=== PATIENT | female | born 1960 | race Two or more races ===

== ENCOUNTER 2024-07-14 22:10 | Inpatient (IN) | payer MEDICAID, OTHER ==
[~2024-07-14] VITALS: Ht 167.6 cm; Wt 58.8 kg
[2024-07-14 22:37] LABS: Basophils # (auto) 0 10 ^3/uL (0-0.2); Basophils % (auto) 0.4 % (0.0-2.0); Eosinophils # (auto) 0.1 10 ^3/uL (0-0.8); Eosinophils % (auto) 0.7 % (0.0-7.0); Hematocrit 48.3 % (36.0-46.0); Lymphocytes # (auto) 2.4 10 ^3/uL (0.4-5.4); Lymphocytes % (auto) 26.9 % (10.0-50.0); Mean Corpuscular Hemoglobin 31.3 pg (28.0-32.0); Mean Corpuscular Hgb Conc. 35.3 g/dL (32.0-36.0); Mean Corpuscular Volume 88.9 fL (80.0-100.0); Monocytes # (auto) 0.6 10 ^3/uL (0-1.3); Monocytes % (auto) 6.5 % (0.0-12.0); Neutrophils # (auto) 5.9 10 ^3/uL (1.6-8.6); Neutrophils % (auto) 65.5 % (37.0-80.0); Platelet Count (auto) 202 10^3/uL (140-450); Red Blood Cells 5.43 10^6/uL (4.0-5.20); Red Cell Distribution Width 12.8 % (11.8-14.3); White Blood Cell 8.9 10^3/uL (4.4-10.8)
[2024-07-14 22:50] VITALS: PULSE 61; RESP 16; O2SAT 100
[2024-07-14 22:53] LABS: Alanine Aminotransferase 59 U/L (7-40); Alkaline Phosphatase 157 U/L (46-116); Anion Gap 10 (5-15); Aspartate Aminotransferase 43 U/L (13-40); BUN/Creatinine Ratio 14.5 (10.0-20.0); Bilirubin, Total 0.5 mg/dL (0.2-1.0); Blood Urea Nitrogen 10 mg/dL (9-23); Calcium 9.3 mg/dL (8.7-10.4); Carbon Dioxide 23 mmol/L (20-30); Chloride 102 mmol/L (98-107); Glucose 171 mg/dL (74-106); Potassium 3.2 mmol/L (3.5-5.1); Sodium 135 mmol/L (136-145)
[2024-07-14 22:54] LABS: Total Protein 8.1 g/dL (5.7-8.2)
[2024-07-14] MEDS: hydrALAZINE HCL 20 MG/ML VL IV ONE ×2 (23:13→23:52)
[2024-07-14] MEDS: ONDANSETRON HCL 4 MG/2 ML VIAL IV ONE (23:14)
[2024-07-14] MEDS: FAMOTIDINE (10MG/ML) 2ML VL IV ONE (23:16)
[2024-07-14] MEDS: MORPHINE SULFATE 4 MG/ML SYR/VIAL IV ONE (23:16)
[2024-07-15 04:03] LABS: Urine Bacteria None Seen /hpf (None Seen)
[2024-07-15 04:26] LABS: Urine Blood Negative /uL (Negative); Urine Budding Yeast OCCASIONAL /hpf (None Seen); Urine Clarity Clear (Clear); Urine Color Light-Yellow (Yellow); Urine Mucus FEW (None Seen); Urine Protein, UAD 1+ (Negative); Urine Specific Gravity 1.012 (1.001-1.035); Urine Urobilinogen Normal (Negative); Urine WBC <1 /hpf (0 - 5)
[2024-07-15] MEDS: POTASSIUM CHL 20 Meq TABLET PO ONE (05:06)
[2024-07-15] MEDS ORDERED: ACETAMINOPHEN 325 MG TAB PO PRN (11:15)
[2024-07-15] MEDS ORDERED: DOCUSATE SOD 100 MG CAP PO PRN (11:15)
[2024-07-15] MEDS ORDERED: HYDROmorphone HCL 2 MG/ML VL/or syr IV PRN (11:15)
[2024-07-15] MEDS ORDERED: ONDANSETRON HCL 4 MG/2 ML VIAL IV PRN (11:15)
[2024-07-15] MEDS ORDERED: hydrALAZINE HCL 20 MG/ML VL IV PRN (11:30)
[2024-07-15 12:11] LABS: Anion Gap 9 (5-15); Carbon Dioxide 23 mmol/L (20-30); Chloride 105 mmol/L (98-107); Sodium 137 mmol/L (136-145)
[2024-07-15 12:12] LABS: Calcium 9.4 mg/dL (8.7-10.4)
[2024-07-15 12:17] LABS: BUN/Creatinine Ratio 13.1 (10.0-20.0); Blood Urea Nitrogen 8 mg/dL (9-23); Glucose 114 mg/dL (74-106); Magnesium 2.2 mg/dL (1.6-2.6)
[2024-07-15 12:40] VITALS: BP 139/74; PULSE 64; RESP 16; TEMP 99.6; O2SAT 92
[2024-07-15 13:03] VITALS: BP 139/74; PULSE 64; RESP 16; TEMP 99.6; O2SAT 92
[2024-07-15] MEDS: SODIUM CHLOR 0.9% PF (SALINE LOCK) 10ML VIAL/SYR IV SCH (15:26)
[2024-07-15 16:53] VITALS: BP 114/74; PULSE 76; RESP 16; TEMP 98.2; O2SAT 95
[2024-07-15] MEDS: NIFEdipine ER 30 MG TAB PO ONE (17:53)
[2024-07-15 20:00] VITALS: PULSE 95
[2024-07-15 22:00] VITALS: BP_SYST 134; BP_DIAS 84; BP_DIAS 87; PULSE 81; RESP 17; TEMP 100.6; O2SAT 94
[2024-07-15] MEDS: HYDROcodone-ACET 5/325MG TAB PO PRN (23:09)
[2024-07-16 01:00] VITALS: BP 100/54; PULSE 70; RESP 16; TEMP 98.4; O2SAT 97
[2024-07-16 05:00] VITALS: BP 104/55; PULSE 67; RESP 17; TEMP 98; O2SAT 95
[2024-07-16 06:21] LABS: Basophils # (auto) 0 10 ^3/uL (0-0.2); Basophils % (auto) 0.5 % (0.0-2.0); Eosinophils # (auto) 0.1 10 ^3/uL (0-0.8); Eosinophils % (auto) 1.2 % (0.0-7.0); Hematocrit 49.1 % (36.0-46.0); Lymphocytes # (auto) 2.2 10 ^3/uL (0.4-5.4); Lymphocytes % (auto) 29.5 % (10.0-50.0); Mean Corpuscular Hemoglobin 31.2 pg (28.0-32.0); Mean Corpuscular Hgb Conc. 34.5 g/dL (32.0-36.0); Mean Corpuscular Volume 90.4 fL (80.0-100.0); Monocytes # (auto) 0.7 10 ^3/uL (0-1.3); Monocytes % (auto) 9.8 % (0.0-12.0); Neutrophils # (auto) 4.4 10 ^3/uL (1.6-8.6); Platelet Count (auto) 209 10^3/uL (140-450); Red Blood Cells 5.43 10^6/uL (4.0-5.20); Red Cell Distribution Width 13.2 % (11.8-14.3); White Blood Cell 7.5 10^3/uL (4.4-10.8)
[2024-07-16 06:34] LABS: Alanine Aminotransferase 52 U/L (7-40); Albumin 4.6 g/dL (3.2-4.8); Alkaline Phosphatase 116 U/L (46-116); Anion Gap 8 (5-15); BUN/Creatinine Ratio 18.4 (10.0-20.0); Blood Urea Nitrogen 14 mg/dL (9-23); Calcium 9.5 mg/dL (8.7-10.4); Carbon Dioxide 25 mmol/L (20-30); Chloride 103 mmol/L (98-107); Glucose 125 mg/dL (74-106); LDL Cholesterol 152 mg/dL (< 100); Magnesium 2.1 mg/dL (1.6-2.6); Potassium 3.9 mmol/L (3.5-5.1); Sodium 136 mmol/L (136-145); Triglycerides 141 mg/dL (< 150)
[2024-07-16 06:35] LABS: Aspartate Aminotransferase 32 U/L (13-40); Bilirubin, Total 0.9 mg/dL (0.2-1.0); Cholesterol 219 mg/dL (< 200); HDL Cholesterol 51 mg/dL (40-59); Total Protein 7.5 g/dL (5.7-8.2)
[2024-07-16 08:00] VITALS: PULSE 69; RESP 16
[2024-07-16 08:39] VITALS: BP 96/62; PULSE 59; RESP 14; TEMP 99; O2SAT 95
[2024-07-16] MEDS: NIFEdipine ER 30 MG TAB PO SCH (10:00)
[2024-07-16 12:55] VITALS: BP 90/55; PULSE 59; RESP 18; TEMP 99.5; O2SAT 96
[2024-07-16 17:00] VITALS: BP 92/49; PULSE 70; RESP 16; TEMP 99; O2SAT 98
== END 2024-07-16 18:20 | disposition home or self-care (01) | DRG 194 ==
LOC: ER 22:10 → OVERFLOW 07-15 11:18 → WEST WING 07-15 12:40 → TELE-WESTW 07-15 23:07
PROVIDERS: ADMIT Internal Medicine; ATTEND Internal Medicine
DX: I50.31 Acute diastolic (congestive) heart failure (principal); K76.0 Fatty (change of) liver, not elsewhere classified; E03.9 Hypothyroidism, unspecified; I16.9 Hypertensive crisis, unspecified; E66.9 Obesity, unspecified; E87.6 Hypokalemia; G44.1 Vascular headache, not elsewhere classified; Z85.43 Personal history of malignant neoplasm of ovary; Z79.899 Other long term (current) drug therapy; Z68.20 Body mass index [BMI] 20.0-20.9, adult
CPT/HCPCS: 36415; 70450; 71045; 76705; 80048; 80053; 80061; 81001; 83036; 83690; 83735; 84443; 84484; 85025; 93005; 93306; G0378; J2405; J3490

== ENCOUNTER 2025-03-07 18:17 | Inpatient (IN) | payer MEDICAID ==
[~2025-03-07] VITALS: Ht 134.6 cm; Wt 67.5 kg
[2025-03-07] MEDS: SODIUM CHLORIDE 0.9% 1,000 ML IV ONE (00:42)
[2025-03-07] MEDS: ACETAMINOPHEN 325 MG TAB PO ONE (10:37)
[2025-03-07] MEDS: IBUPROFEN 600 MG TAB PO ONE (18:44)
[2025-03-07] MEDS ORDERED: CEFEPIME 2GM/50ML NS 50 ML IV ONE (19:00)
--- NOTE | 2025-03-07 19:24 | ED.PDOC ---
History of Present Illness HPI Comments 64 year old female presents to the ED with a chief complaint of fever onset today (03/07/25). Patient states she began experiencing headache around 15:00, body aches, dizziness, chills. Patient was seen at urgent care about 1 week ago, prescribed medication, symptoms improved and worsen today. Upon ED arrival, temperature was 103.7 F, Tylenol 1 g and Ibuprofen 600 mg was given. Denies any PMHx as well as abdominal pain, nausea, vomiting, diarrhea, cough, congestion. No other symptoms or modifying factors present at this time. Chief Complaint: Fever Time Seen by MD: 18:50 Reviewed Notes: Medications, Allergies Information Source: Patient Mode of Arrival: Ambulatory Timing: Hours Duration: Since onset Prehospital treatment: None Severity: Moderate Fever: Temperature max (103.7F) Context: Recent: None Symptoms: Fever Modifying Factors: Nothing Associated Signs and Symptoms: Weakness, Headache Past Medical History PAST MEDICAL HISTORY: Denies Surgical History: Denies all surgeries PROGRAM DIRECTOR/MUSIC DIRECTOR History: Ovarian Cancer Family History Family History: Reviewed,noncontributory to illness Social History Smoker: Non-Smoker Alcohol: Denies ETOH Use Drugs: Denies Drug Use Lives In: Home Constitutional: Fever EENTM: No Symptoms Reported Respiratory: No Symptoms Reported Cardiovascular: No Symptoms Reported Gastrointestinal: No Symptoms Reported Genitourinary: No Symptoms Reported Neurological: Dizziness, Headache Musculoskeletal: No Symptoms Reported Integumentary: No Symptoms Reported Allergic/Immunocompromised: others Hematologic/Lymphatic: No Symptoms Reported Endocrine: No Symptoms Reported Psychiatric: No symptoms Reported All Other Systems: Reviewed and Negative Physical Exam General Appearance: Moderate Distress, Normal, Other (tearful, febrile) HEENT: Normal ENT Inspection, Pharynx Normal, TMs Normal Neck: Full Range of Motion, Non-Tender, Normal, Normal Inspection Respiratory: Chest Non-Tender, Lungs Clear, No Accessory Muscle Use, No Respiratory Distress, Normal Breath Sounds Cardiovascular: No Edema, No JVD, No Murmur, No Gallop, Tachycardia Breast Exam: Deferred Gastrointestinal: No Organomegaly, Non Tender, No Pulsatile Mass, Normal Bowel Sounds, Soft Genitalia: Deferred Pelvic: Deferred Rectal: Deferred Extremities: No calf tenderness, Normal capillary refill, Normal inspection, Normal range of motion, Non-tender, No pedal edema Musculoskeletal : Apperance: Normal Neurologic: Alert, mophead trimmer and wrapper II-XII nml as Tested, No Motor Deficits, Normal Affect, Normal Mood, No Sensory Deficits Cerebellar Function: Normal Reflexes: Normal Skin: Dry, Normal Color, Warm Lymphatic: No Adenopathy Was a procedure done? Was a procedure done?: No Fever Differential Dx Differential Diagnosis: Dehydration, Pneumonia, Pneumonitis, Pyelonephritis, Sepsis, UTI, Viral Syndrome X-Ray, Labs, Meds, VS Vital Signs Date Time Temp Pulse Resp B/P (MAP) Pulse Ox O2 Delivery O2 Flow Rate FiO2 03/07/25 18:45 103.7 110 18 137/101 (113) 97 103.7 03/07/25 18:44 103.7 03/07/25 10:37 103.7 Lab Test 03/07/25 21:12 03/07/25 20:11 03/07/25 19:11 Range/Units Lactic Acid Level 2.6 *H 2.6 *H 0.4-2.0 mmol/L Troponin I High Sensitivity 8 6 </=34 ng/L White Blood Count 12.8 H 4.4-10.8 10^3/uL Red Blood Count 5.46 H 4.0-5.20 10^6/uL Hemoglobin 16.9 H 12.2-16.2 g/dL Hematocrit 49.5 H 36.0-46.0 % Mean Corpuscular Volume 90.6 80.0-100.0 fL Mean Corpuscular Hemoglobin 30.9 28.0-32.0 pg Mean Corpuscular Hemoglobin Concent 34.1 32.0-36.0 g/dL Red Cell Distribution Width 13.1 11.8-14.3 % Platelet Count 179 140-450 10^3/uL Mean Platelet Volume 8.0 6.9-10.8 fL Neutrophils (%) (Auto) 92.3 H 37.0-80.0 % Lymphocytes (%) (Auto) 4.8 L 10.0-50.0 % Monocytes (%) (Auto) 2.1 0.0-12.0 % Eosinophils (%) (Auto) 0.4 0.0-7.0 % Basophils (%) (Auto) 0.4 0.0-2.0 % Neutrophils # (Auto) 11.8 H 1.6-8.6 10 ^3/uL Lymphocytes # (Auto) 0.6 0.4-5.4 10 ^3/uL Monocytes # (Auto) 0.3 0-1.3 10 ^3/uL Eosinophils # (Auto) 0 0-0.8 10 ^3/uL Basophils # (Auto) 0.1 0-0.2 10 ^3/uL Nucleated Red Blood Cells 0.3 % Platelet Estimate Adequate Red Blood Cell Morphology Normal Sodium Level 136 136-145 mmol/L Potassium Level 3.6 3.5-5.1 mmol/L Chloride Level 103 98-107 mmol/L Carbon Dioxide Level 23 20-31 mmol/L Anion Gap 10 5-15 Blood Urea Nitrogen 13 9-23 mg/dL Creatinine 0.69 0.550-1.02 mg/dL Glomerular Filtration Rate Calc 97 >90 mL/min BUN/Creatinine Ratio 18.8 10.0-20.0 Serum Glucose 135 H 74-106 mg/dL Calcium Level 9.5 8.7-10.4 mg/dL Total Bilirubin 0.6 0.2-1.0 mg/dL Aspartate Amino Transferase (AST) 41 H 13-40 U/L Alanine Aminotransferase (ALT) 60 H 7-40 U/L Alkaline Phosphatase 177 H 46-116 U/L Total Protein 7.5 5.7-8.2 g/dL Albumin 4.7 3.2-4.8 g/dL Current Medications Medications (Trade) Dose Ordered Sig/Kel Route Start Time Stop Time Status Last Admin Acetaminophen (Tylenol Tablet) 1,000 mg ONCE ONCE PO 03/07/25 18:45 03/07/25 18:46 DC 03/07/25 10:37 Ibuprofen (Motrin Tablet) 600 mg ONCE ONCE PO 03/07/25 18:45 03/07/25 18:46 DC 03/07/25 18:44 [place] [address] Ph: [phone] DIAGNOSTIC IMAGING Diagnostic Imaging Report : [id number] Signed PATIENT: KATINA MENDEZACCT: [id number] UNIT: [id number] : 1960 LOC: ER ROOM / BED: / AGE / SEX: 64 / F ADM STATUS: REG ER SERVICE [id number] ORDERING PHYSICIAN: KIRSTEN COVARRUBIAS MD PROCEDURE(s): CXRP - CHEST PORTABLE REASON: syncope ORDER NUMBER(s): [id number], ACCESSION NUMBER(s): [id number] CHEST RADIOGRAPH Indication: syncope Technique: Single frontal view of the chest was obtained Comparison: XY CHEST PORTABLE on DOS: 07/14/24 FINDINGS: Lines and Tubes: None Lungs: No focal consolidation. Pleura: No effusion. No pneumothorax. Cardiomediastinal contours: Unremarkable Bones: No acute osseous abnormality. IMPRESSION: No acute cardiopulmonary disease. ATED BY: LIZZIE GOTTLIEB DO DICTATED DATE/TIME: 03/07/252053 SIGNED BY: LIZZIE GOTTLIEB DO SIGNED DATE/TIME: 03/07/252053 CC: [place] [address] Ph: [phone] DIAGNOSTIC IMAGING Diagnostic Imaging Report : [id number] Signed PATIENT: KATINA MENDEZACCT: [id number] UNIT: [id number] : 1960 LOC: ER ROOM / BED: / AGE / SEX: 64 / F ADM STATUS: REG ER SERVICE [id number] ORDERING PHYSICIAN: KIRSTEN COVARRUBIAS MD PROCEDURE(s): HWOCT - HEAD WITHOUT CONTRAST REASON: syncope ORDER NUMBER(s): [id number], ACCESSION NUMBER(s): [id number] CLINICAL HISTORY: syncope TECHNIQUE: Helical imaging carried out from skull base to vertex without intravenous contrast. This exam was performed according to our departmental dose optimization program. Up-to-date CT equipment and radiation dose reduction techniques are utilized as appropriate. CTDIVol: 52.36 + 0.07 mGy DLP: 927.27 mGy-cm WID: COMPARISON: CT HEAD WITHOUT CONTRAST on DOS: 07/14/24 FINDINGS: Mild patchy low-attenuation in the cerebral white matter consistent with nonspecific white matter disease. The ventricles and subarachnoid spaces are normal in size and configuration. There is no midline shift or mass effect. The garza white matter interfaces are maintained. The basal cisterns are patent. There is no evidence of acute intracranial hemorrhage or extra-axial fluid collection. The mastoid air cells and visualized paranasal sinuses are well-aerated aside from frothy secretions i n the right sphenoid sinus and a trace fluid level in the left sphenoid sinus. IMPRESSION: 1. No acute intracranial abnormality. 2. Mild chronic microvascular ischemic change. ATED BY: MIYA BRADLEY MD DICTATED DATE/TIME: 03/07/252044 SIGNED BY: MIYA BRADLEY MD SIGNED DATE/TIME: 03/07/252044 CC: Time of 1ST Reevaluation: 19:20 Reevaluation 1ST: Unchanged Patient Education/Counseling: Diagnosis, Treatment, Prognosis Family Education/Counseling: No Family Present Additional Information The following tests were ordered, and results were reviewed by me: CBC, CMP, LA W/ REFLEX, BLOOD CULTURE, TROP -x3, UA, XY CHEST, CT HEAD WO CONTRAST I reviewed and agreed with the following test results read by other providers: XY CHEST, CT HEAD WO CONTRAST I discussed treatment and results with medical personnel and: patient Comprehensive systems review obtained and negative except for what is stated in the HPI. Departure 1 Departure Time of Disposition: 22:23 (Patient presented with syncope and fever today and should be admitted. Data: 1. I ordered and reviewed the result of at least 3 labs including a CBC, BMP, and troponin. 2. I independently interpreted the following tests: EKG which shows a sinus tachycardia and a chest x-ray which shows benign chest and a CT head which shows benign brain.Risk:This patient has a high risk of morbidity due to further diagnostic testing or treatment and may suffer from an acute cardiac, neurologic, or infectious disorder. Rationale: Patient should be admitted to the hospital for further management.) Impression: Primary Impression: Syncope and collapse Additional Impressions: Viral syndrome Fever Qualified Codes: R50.9 - Fever, unspecified Disposition: ADMITTED INPATIENT Admit to: Med Surg Condition: Serious e-Prescriptions No Active Prescriptions or Reported Meds Critical Care Note Critical Care Time?: Yes Critical care comment: Syncope Authorized and Performed by: Kirsten Covarrubias MD Total critical care time: Approximately 38 minutes Due to a high probability of clinically significant, life threatening deterioration, the patient required my highest level of preparedness to intervene emergently and I personally spent this critical care time directly and personally managing the patient. This critical care time included obtaining a history; examining the patient; pulse oximetry; ordering and review of studies; arranging urgent treatment with development of a management plan; evaluation of patient's response to treatment; frequent reassessment; and, discussions with other providers. This critical care time was performed to assess and manage the high probability of imminent, life-threatening deterioration that could result in multi-organ failure. It was exclusive of separately billable procedures and treating other patients and teaching time. Please see my other sections and the rest of the note for further information on patient assessment and treatment. Stability Stability form required: No I personally scribed for KIRSTEN COVARRUBIAS MD ([email or web address]) on 03/07/25 at 19:24. Electronically submitted by Kat Britton ([email or web address]). I personally scribed for KIRSTEN COVARRUBIAS MD ([email or web address]) on 03/07/25 at 20:37. Electronically submitted by Kat Britton ([email or web address]). I personally scribed for KIRSTEN COVARRUBIAS MD ([email or web address]) on 03/07/25 at 21:27. Electronically submitted by Kat Britton ([email or web address]). KIRSTEN COVARRUBIAS MD Mar 07, 2025 19:24
[2025-03-07 19:50] LABS: Basophils # (auto) 0.1 10 ^3/uL (0-0.2); Basophils % (auto) 0.4 % (0.0-2.0); Eosinophils # (auto) 0 10 ^3/uL (0-0.8); Eosinophils % (auto) 0.4 % (0.0-7.0); Hematocrit 49.5 % (36.0-46.0); Hemoglobin 16.9 g/dL (12.2-16.2); Lymphocytes # (auto) 0.6 10 ^3/uL (0.4-5.4); Lymphocytes % (auto) 4.8 % (10.0-50.0); Mean Corpuscular Hemoglobin 30.9 pg (28.0-32.0); Mean Corpuscular Hgb Conc. 34.1 g/dL (32.0-36.0); Mean Corpuscular Volume 90.6 fL (80.0-100.0); Monocytes # (auto) 0.3 10 ^3/uL (0-1.3); Monocytes % (auto) 2.1 % (0.0-12.0); Neutrophils # (auto) 11.8 10 ^3/uL (1.6-8.6); Neutrophils % (auto) 92.3 % (37.0-80.0); Nucleated Red Blood Cells % 0.3 %; Platelet Count (auto) 179 10^3/uL (140-450); Red Blood Cells 5.46 10^6/uL (4.0-5.20); Red Cell Distribution Width 13.1 % (11.8-14.3); White Blood Cell 12.8 10^3/uL (4.4-10.8)
[2025-03-07 20:01] LABS: Albumin 4.7 g/dL (3.2-4.8); Anion Gap 10 (5-15); BUN/Creatinine Ratio 18.8 (10.0-20.0); Bilirubin, Total 0.6 mg/dL (0.2-1.0); Blood Urea Nitrogen 13 mg/dL (9-23); Calcium 9.5 mg/dL (8.7-10.4); Carbon Dioxide 23 mmol/L (20-31); Chloride 103 mmol/L (98-107); Potassium 3.6 mmol/L (3.5-5.1); Total Protein 7.5 g/dL (5.7-8.2)
[2025-03-07 20:07] LABS: Alanine Aminotransferase 60 U/L (7-40); Alkaline Phosphatase 177 U/L (46-116); Aspartate Aminotransferase 41 U/L (13-40); Glucose 135 mg/dL (74-106); Sodium 136 mmol/L (136-145)
[2025-03-07 20:12] LABS: Lactic Acid w/Reflex 2.6 mmol/L (0.4-2.0)
--- NOTE | 2025-03-07 20:47 | DVH ---
CLINICAL HISTORY: syncope TECHNIQUE: Helical imaging carried out from skull base to vertex without intravenous contrast. This e xam was performed according to our departmental dose optimization program. Up-to-date CT equipment an d radiation dose reduction techniques are utilized as appropriate. CTDIVol: 52.36 + 0.07 mGy DLP: 927.27 mGy-cm WID: COMPARISON: CT HEAD WITHOUT CONTRAST on DOS: 07/14/24 FINDINGS: Mild patchy low-attenuation in the cerebral white matter consistent with nonspecific white matter dis ease. The ventricles and subarachnoid spaces are normal in size and configuration. There is no midline fredrick ft or mass effect. The garza white matter interfaces are maintained. The basal cisterns are patent. Th ere is no evidence of acute intracranial hemorrhage or extra-axial fluid collection. The mastoid air cells and visualized paranasal sinuses are well-aerated aside from frothy secretions in the right sph enoid sinus and a trace fluid level in the left sphenoid sinus. IMPRESSION: 1. No acute intracranial abnormality. 2. Mild chronic microvascular ischemic change.
--- NOTE | 2025-03-07 20:56 | DVH ---
CHEST RADIOGRAPH Indication: syncope Technique: Single frontal view of the chest was obtained Comparison: XY CHEST PORTABLE on DOS: 07/14/24 FINDINGS: Lines and Tubes: None Lungs: No focal consolidation. Pleura: No effusion. No pneumothorax. Cardiomediastinal contours: Unremarkable Bones: No acute osseous abnormality. IMPRESSION: No acute cardiopulmonary disease.
[2025-03-07 22:05] LABS: Platelet Estimate Adequate; RBC Morphology Normal
[2025-03-07 23:55] VITALS: PULSE 65; RESP 13; O2SAT 97
--- NOTE | 2025-03-07 23:57 | DVHHPRES ---
History of Present Illness Resident Creating Document: MOISÉS CAMPA RESIDENT History of Present Illness Ms Wen is a 64-year-old female with past medical history of hypertension, left eye retinal detachment September 2024 status post surgery at [place] who presented to the ER with a chief complaint of left-sided headache, conjunctival redness, dizziness and fever for the past 7 days. Patient has been reporting dizziness for the past 2 weeks for which she went [facility] where she was probably given meclizine and sent home. Patient's symptom did not improve and she continues to be dizzy, started to develop left-sided periorbital headache radiating to the left temporal region associated with high-grade fever 103 F starting 03/07 along with chills. Headache is associated photophobia patient is experiencing headache for the past 2 months. She denies any nausea vomiting shortness of breaths, chest pain, cough, palpitations, abdominal or urinary symptoms. Patient was completed her Medrol doxy pack on 03/03, she has been taking p.o. cefdinir Patient denies ophthalmoplegia, blurry vision, proptosis, nausea or vomiting. On arrival to the ER, patient was febrile at 1:03 a.m. 0.7 F, tachycardic at 110 beats per minute, on room air, WBC 12.8 with 92 neutrophils. Lactic acid elevated at 2.6. Transaminitis. Head CT was completed which was negative. Past medical history: Left sided retinal detachment status post surgery at [place] October 01 Home medications: Completed Medrol pack 03/03, cefdinir b.i.d., fluticasone nasal spray meclizine Social history: Lives with , denies smoking/drinking/illicit drug use PCP: Does not remember Surgeon Dr. Arciniega at [place] Patient seen and examined in the ER. Reported dizziness. Smoke: No ALCOHOL: none Drugs: None Lives: with Family Review of Systems Constitutional: Yes: Fever, Chills Eyes: Conjunctivae inflammation, Redness Allergies: Coded Allergies: NO KNOWN ALLERGIES (Unverified , 07/14/24) Exam Vital Signs Vital Signs Date Time Temp Pulse Resp B/P (MAP) Pulse Ox O2 Delivery O2 Flow Rate FiO2 03/07/25 18:45 103.7 110 18 137/101 (113) 97 103.7 Exam Female patient sitting comfortably in the wheelchair in ER, no acute distress Bilateral conjunctivae are inflamed. Normal pupillary reflex Patient does not have neck rigidity or Kernig's sign General: Well-built, afebrile, mucosae are moist Cardiovascular: Regular S1 and S2. No murmurs, gallops or rubs. No JVD elevation. No pedal edema Respiratory: Normal B/L air entry on room air. Clear lung sounds on auscultation Abdomen: Soft, nontender, nondistended, normoactive bowel sounds, no rebound tenderness, no organomegaly, no masses Genitourinary: Deferred MSK/skin: Mobilizes 4 limbs. Skin is dry and warm Neurological: No motor, no sensitive deficits, normal speech. Pupils are isocoric and reactive. Psych/Mental Status: A/Ox3 Labs/Xrays Labs Test 03/07/25 21:12 03/07/25 20:11 03/07/25 19:11 Range/Units Lactic Acid Level 2.6 *H 0.4-2.0 mmol/L Troponin I High Sensitivity 8 </=34 ng/L White Blood Count 12.8 H 4.4-10.8 10^3/uL Red Blood Count 5.46 H 4.0-5.20 10^6/uL Hemoglobin 16.9 H 12.2-16.2 g/dL Hematocrit 49.5 H 36.0-46.0 % Mean Corpuscular Volume 90.6 80.0-100.0 fL Mean Corpuscular Hemoglobin 30.9 28.0-32.0 pg Mean Corpuscular Hemoglobin Concent 34.1 32.0-36.0 g/dL Red Cell Distribution Width 13.1 11.8-14.3 % Platelet Count 179 140-450 10^3/uL Mean Platelet Volume 8.0 6.9-10.8 fL Neutrophils (%) (Auto) 92.3 H 37.0-80.0 % Lymphocytes (%) (Auto) 4.8 L 10.0-50.0 % Monocytes (%) (Auto) 2.1 0.0-12.0 % Eosinophils (%) (Auto) 0.4 0.0-7.0 % Basophils (%) (Auto) 0.4 0.0-2.0 % Neutrophils # (Auto) 11.8 H 1.6-8.6 10 ^3/uL Lymphocytes # (Auto) 0.6 0.4-5.4 10 ^3/uL Monocytes # (Auto) 0.3 0-1.3 10 ^3/uL Eosinophils # (Auto) 0 0-0.8 10 ^3/uL Basophils # (Auto) 0.1 0-0.2 10 ^3/uL Nucleated Red Blood Cells 0.3 % Platelet Estimate Adequate Red Blood Cell Morphology Normal Sodium Level 136 136-145 mmol/L Potassium Level 3.6 3.5-5.1 mmol/L Chloride Level 103 98-107 mmol/L Carbon Dioxide Level 23 20-31 mmol/L Anion Gap 10 5-15 Blood Urea Nitrogen 13 9-23 mg/dL Creatinine 0.69 0.550-1.02 mg/dL Glomerular Filtration Rate Calc 97 >90 mL/min BUN/Creatinine Ratio 18.8 10.0-20.0 Serum Glucose 135 H 74-106 mg/dL Calcium Level 9.5 8.7-10.4 mg/dL Total Bilirubin 0.6 0.2-1.0 mg/dL Aspartate Amino Transferase (AST) 41 H 13-40 U/L Alanine Aminotransferase (ALT) 60 H 7-40 U/L Alkaline Phosphatase 177 H 46-116 U/L Total Protein 7.5 5.7-8.2 g/dL Albumin 4.7 3.2-4.8 g/dL Assessment/Plan Assessment/Plan ? Septic cerebral venous thrombosis ? Cavernous sinus thrombosis ? Endopht halmitis Left-sided retinal detachment status post surgery at [place] September 2024 Dizziness, rule out stroke/mass ? Polycythemia Lactic acidosis Transaminitis Obesity Hypertension Plan: Lovenox 1 milligram/kg b.i.d. IV fluid, IV vancomycin, IV ceftriaxone and IV metronidazole CT head unremarkable Follow up with MRI with MR venography Follow up with ESR/CRP/Anca/SELINA/peripheral smear/D-dimer Consider EPO levels Follow up with liver ultrasound Elevated D-dimer, follow up with lower extremity Doppler Diet NPO Lovenox 40 mg sc daily Plan discussed with patient and in ER in which all questions have been answered Goals of care discussed for more than 30 minutes, full code status Case discussed with Dr. Torres Plan discussed with: Patient, Other () Date of Service: Mar 07, 2025 Billing Provider: CHILO TORRES MD Common Visit Codes: 92242-MSTTXCS INP/OBS CARE (HIGH) KATHERYNMOISÉS RESIDENT Mar 07, 2025 23:56
[2025-03-08] VITALS (10 sets, daily range): BP systolic 99–159; BP diastolic 54–92; PULSE 53–84; RESP 16–18; TEMP 97.6–102.8; O2SAT 95–98
[2025-03-08] MEDS: SODIUM CHLORIDE 0.9% 1,000 ML IV SCH
[2025-03-08] MEDS ORDERED: MORPHINE SULFATE INJ 2 MG/ml SYRG IV PRN
[2025-03-08] MEDS ORDERED: HYDROcodone-ACET 5/325MG TAB PO PRN
[2025-03-08] MEDS ORDERED: VANCOMYCIN PER PHARMACY 0 MG IV SCH
[2025-03-08 00:24] LABS: Urine Bacteria None Seen /hpf (None Seen)
[2025-03-08] MEDS: VANCOMYCIN 1.5GM/300ML 300 ML IV ONE (00:30)
[2025-03-08] MEDS: ONDANSETRON HCL 4 MG/2 ML VIAL IV ONE (00:50)
[2025-03-08] MEDS: SODIUM CHLORIDE 0.9% 1,000 ML IV ONE ×2 (00:50)
[2025-03-08] MEDS: ACETAMINOPHEN 325 MG TAB PO SCH (00:51)
[2025-03-08] MEDS: METOCLOPRAMIDE HCL 5MG/ml INJ 2ml VIAL IV ONE (00:51)
[2025-03-08] MEDS: VANCOMYCIN 1GM/200ML PM 200 ML IV ONE (00:52)
[2025-03-08] MEDS: cefTRIAXone 1GM/50ML D5W 50 ML IV ONE (00:55)
[2025-03-08] MEDS: metroNIDAZOLE 500MG/100ML 100 ML IV ONE (00:56)
[2025-03-08 01:07] LABS: Urine Blood Negative /uL (Negative); Urine Clarity Clear (Clear); Urine Color Light-Yellow (Yellow); Urine Mucus FEW (None Seen); Urine Protein, UAD Negative (Negative); Urine Specific Gravity 1.018 (1.001-1.035); Urine Squamous Epithelial Cell None Seen /hpf (<5); Urine Urobilinogen Normal (Negative); Urine WBC 2 /HPF (0-5); Urine pH 5.5 (5.0-9.0)
[2025-03-08 02:33] LABS: Erythrocyte Sedimentation Rate 4 mm/hr (0-20)
[2025-03-08] MEDS: VANCOMYCIN 1GM/250ML KIT 125 ML IV ONE (03:16)
[2025-03-08 03:19] LABS: Amphetamine Screen, Urine Neg (NEGATIVE); Barbiturate Scree,Urine Neg (NEGATIVE); Benzodiazephine Screen, Urine Neg (NEGATIVE); Cannabinoid Screen, Urine Neg (NEGATIVE); Cocaine Screen, Urine Neg (NEGATIVE); Opiate Scree,Urine Neg (NEGATIVE); Phencyclidine Screen, Urine Neg (NEGATIVE)
[2025-03-08] MEDS: ENOXAPARIN SOD 100 MG/1 ML SYRINGE SC ONE (03:21)
[2025-03-08] MEDS: metroNIDAZOLE 500MG/100ML 100 ML IV SCH (05:56)
[2025-03-08 08:06] LABS: Basophils # (auto) 0 10 ^3/uL (0-0.2); Basophils % (auto) 0.3 % (0.0-2.0); Eosinophils # (auto) 0.1 10 ^3/uL (0-0.8); Eosinophils % (auto) 0.6 % (0.0-7.0); Hematocrit 42.1 % (36.0-46.0); Hemoglobin 14.6 g/dL (12.2-16.2); Lymphocytes # (auto) 0.9 10 ^3/uL (0.4-5.4); Lymphocytes % (auto) 8.1 % (10.0-50.0); Mean Corpuscular Hemoglobin 31.2 pg (28.0-32.0); Mean Corpuscular Hgb Conc. 34.6 g/dL (32.0-36.0); Mean Corpuscular Volume 90.1 fL (80.0-100.0); Monocytes # (auto) 0.5 10 ^3/uL (0-1.3); Monocytes % (auto) 5.1 % (0.0-12.0); Neutrophils # (auto) 9.3 10 ^3/uL (1.6-8.6); Neutrophils % (auto) 85.9 % (37.0-80.0); Nucleated Red Blood Cells % 0.1 %; Platelet Count (auto) 154 10^3/uL (140-450); Red Blood Cells 4.68 10^6/uL (4.0-5.20); White Blood Cell 10.8 10^3/uL (4.4-10.8)
[2025-03-08 08:10] LABS: Alkaline Phosphatase 110 U/L (46-116); Anion Gap 9 (5-15); BUN/Creatinine Ratio 21.2 (10.0-20.0); Blood Urea Nitrogen 11 mg/dL (9-23); Carbon Dioxide 21 mmol/L (20-31); Glucose 104 mg/dL (74-106); Magnesium 2.1 mg/dL (1.6-2.6); Potassium 3.5 mmol/L (3.5-5.1); Sodium 141 mmol/L (136-145)
[2025-03-08 08:11] LABS: Albumin 3.7 g/dL (3.2-4.8); Aspartate Aminotransferase 28 U/L (13-40)
[2025-03-08 08:12] LABS: Alanine Aminotransferase 43 U/L (7-40); Bilirubin, Direct 0.2 mg/dL (<0.3); Bilirubin, Total 0.8 mg/dL (0.2-1.0); Calcium 8.6 mg/dL (8.7-10.4); Chloride 111 mmol/L (98-107)
--- NOTE | 2025-03-08 08:42 | ECG ---
[facility] Test Date: 2025-03-08 Test Time: 06:31:08 Pat Name: KATINA ZAMBRANOODepartment: [facility] Gender: F Clinical Geneticist: TIKI : 1960 Requested By: MOISÉS CAMPA Order Number: [id number] Reading MD: Ruel Aggarwal Measurements Intervals [place] Rate: 55 P: 19 MI: 170 QRS: -25 QRSD: 88 T: 0 QT: 507 QTc: 485 Interpretive Statements Sinus rhythm Borderline left axis deviation Posterior infarct, old Electronically Signed On 03-08-2025 11:18:39 PDT by Ruel Aggarwal Please click the below link to view image of tracing.
--- NOTE | 2025-03-08 08:52 | DVH ---
Bilateral lower extremity venous duplex Clinical History: Rule out lower extremity DVT, edema Comparison: None Findings: Duplex Doppler evaluation of the deep venous systems of both lower extremities from the common femora l veins to the popliteal veins including color Doppler and spectral/pulsed waveform analysis was perf ormed. RIGHT SIDE: The common femoral vein demonstrates appropriate compressibility and waveform variability. There is compressibility/patency of the great saphenous vein at the proximal thigh. The femoral vein demonstrates appropriate compressibility and waveform variability. The deep femoral vein demonstrates appropriate compressibility and waveform variability. The popliteal vein demonstrates appropriate compressibility and waveform variability. There is normal compressibility at the tibioperoneal trunk. LEFT SIDE: The common femoral vein demonstrates appropriate compressibility and waveform variability. There is compressibility/patency of the great saphenous vein at the proximal thigh. The femoral vein demonstrates appropriate compressibility and waveform variability. The deep femoral vein demonstrates appropriate compressibility and waveform variability. The popliteal vein demonstrates appropriate compressibility and waveform variability. There is normal compressibility at the tibioperoneal trunk. IMPRESSION: No right or left femoropopliteal venous thrombosis. If clinical concern/symptoms persist or worsen, short-interval follow-up study is suggested. END IMPRESSION:
[2025-03-08 09:00] LABS: INR 1.09 (0.9-1.15); Partial Thromboplastin Time 33.2 SEC (24.5-34.5); Prothrombin Time 11.5 sec (9.3-11.8)
[2025-03-08] MEDS: cefTRIAXone 1GM/50ML D5W 50 ML IV SCH (09:46)
--- NOTE | 2025-03-08 09:46 | DVH ---
EXAMINATION: MRI BRAIN HEAD WO CONTRAST INDICATION: cerebral venous thrombosis COMPARISON: CT head 03/07/2025 TECHNIQUE: Multiplanar, multisequence magnetic resonance imaging of the brain was performed without t he use of intravenous contrast. FINDINGS: There is no restricted diffusion. There are few scattered punctate hyperintense T2 foci in the suprat entorial white matter likely related to minimal chronic microvascular ischemic changes. There is no e vidence of hemorrhage, mass, mass effect or midline shift. There is no hydrocephalus or extra-axial f luid collection. The visualized intracranial vasculature demonstrates appropriate flow-voids. The sag ittal midline structures appear unremarkable. The craniocervical junction is within normal limits. Th e calvarium demonstrates normal marrow signal. The paranasal sinuses and mastoid air cells are clear. IMPRESSION: 1. There is no acute intracranial process. HS:Y
[2025-03-08 10:02] LABS: Wright Stain Ready for Review
--- NOTE | 2025-03-08 10:05 | DVH ---
MRV HEAD CLINICAL HISTORY: MRV...R/O THROMBUS TECHNIQUE: 2-D [id number] MR venogram of the head was performed. Comparison: MRI brain 03/08/2025. FINDINGS: The superior sagittal, straight, transverse and sigmoid sinuses are patent demonstrating appropriate flow signal. The torcula, vein of Uriel and internal cerebral veins are also patent with appropriate flow signal. There are no abnormally enlarged superficial cerebral veins identified. IMPRESSION: 1. Unremarkable MRV head. HS:Y
[2025-03-08] MEDS ORDERED: IOHEXOL 350 MG/ML 100ML IJ ONE (10:44)
--- NOTE | 2025-03-08 12:05 | DVH ---
PROCEDURE: CT CT ANGIO CHEST CONTRAST 03/08/2025 10:47 AM INDICATION: elevated D dimer PE ruled out COMPARISON: None TECHNIQUE: Coverage: Thorax IV contrast: Administered Phases: Arterial Multiplanar 3-D Maximum Intensity Projection images (MIP) reconstructions were created by the technnery bernstein in the coronal and sagittal planes as part of the CT angiography protocol. Adverse events: None Medication laboratory values were reviewed to verify the patient meets criteria for contrast administ ration. All CT scans at this medical facility are performed using dose modulation techniques as appropriate t o a performed exam including the following: Automated exposure control was utilized; adjustment of th e MA and/or KV according to patient size; and use of iterative reconstruction technique. Radiation dose: CTDIvol 15.29 mGy, DLP 534.51 mGy*cm. FINDINGS: Cardiovascular: No evidence of acute or chronic pulmonary emboli identified. Aorta is normal in calib er. The heart is moderately enlarged. No pericardial effusion. Lungs: No focal consolidation. No pleural effusion. No pneumothorax. The airways are patent. Thyroid: A 1.5 cm hypodense nodule seen in the left thyroid lobe. Esophagus: Unremarkable. Lymphatics: No hilar or mediastinal lymphadenopathy. Bones/soft tissues: No acute abnormality. Upper abdomen: No acute abnormality. Scattered colonic diverticula are seen. Hepatic steatosis with a reas of focal fatty sparing adjacent to gallbladder fossa. Other: None. IMPRESSION: 1. No evidence of acute pulmonary emboli, aortic aneurysm or dissection. 2. Cardiomegaly without evidence of CHF. 3. No evidence pneumonia. 4. Left thyroid lobe nodule. Recommend further evaluation with thyroid ultrasound on a nonemergent b asis.
[2025-03-08 12:25] LABS: % Iron Saturation 30.4 % (15-50)
--- NOTE | 2025-03-08 18:30 | DVHPN2 ---
Subjective still having double vision on left eye where she had surgery for retinal detachment, this has been happening since surgery Changes from previous H/P or p: No Changes Eyes: Conjunctivae inflammation, Redness Objective Vitals Vital Signs Date Time Temp Pulse Resp B/P (MAP) Pulse Ox O2 Delivery O2 Flow Rate FiO2 03/08/25 17:00 98.3 84 16 140/88 (105) 96 98.3 03/08/25 08:00 Room Air* 0 21 Intake/Output Intake and Output 03/08/25 07:00 Intake Total 150 ml Balance 150 ml Intake Oral 0 ml IV Total 150 ml # Voids 1 General Appearance: Alert, Oriented X3 HEENT: Atraumatic, Other (Left eye double vision) Lungs: Clear to auscultation Medications Current Medications Medications Dose Ordered Sig/Kel Route Start Time Stop Time Status Last Admin Dose Admin Vancomycin HCl 0 ml @ 0 mls/hr UD IV 03/08/25 00:00 Ceftriaxone Sodium 50 ml @ 100 mls/hr DAILY@09 IV 03/08/25 09:00 03/08/25 09:46 100 MLS/HR Metronidazole 100 ml @ 100 mls/hr Q8HR IV 03/08/25 06:00 03/08/25 14:18 100 MLS/HR Sodium Chloride 1,000 ml @ 100 mls/hr Q10H IV 03/08/25 00:00 Acetaminophen/ Hydrocodone Bitart 1 tab Q4HPRN PRN PO 03/08/25 00:00 Morphine Sulfate 1 mg Q4HPRN PRN IV 03/08/25 00:00 Acetaminophen 650 mg Q6HP PO 03/08/25 00:00 Enoxaparin Sodium 70 mg BID SC 03/08/25 22:00 Vancomycin HCl 200 ml @ 200 mls/hr Q12H IV 03/08/25 16:00 Laboratory Results Laboratory Tests 03/08/25 06:20 Chemistry Test 03/07/25 19:11 03/08/25 06:20 Albumin 4.7 g/dL (3.2-4.8) 3.7 g/dL (3.2-4.8) Calcium Level 9.5 mg/dL (8.7-10.4) 8.6 mg/dL (8.7-10.4) L Total Protein 7.5 g/dL (5.7-8.2) 6.0 g/dL (5.7-8.2) Magnesium Level 2.1 mg/dL (1.6-2.6) Coagulation Test 03/08/25 00:30 03/08/25 06:20 D-Dimer, Quantitative 1.61 mg/L FEU (0.0-0.49) H Prothrombin Time 11.5 sec (9.3-11.8) Prothrombin Time INR 1.09 (0.9-1.15) Activated Partial Thromboplast Time 33.2 SEC (24.5-34.5) LFT Test 03/07/25 19:11 03/08/25 06:20 Alanine Aminotransferase (ALT) 60 U/L (7-40) H 43 U/L (7-40) H Alkaline Phosphatase 177 U/L (46-116) H 110 U/L (46-116) Aspartate Amino Transferase (AST) 41 U/L (13-40) H 28 U/L (13-40) Total Bilirubin 0.6 mg/dL (0.2-1.0) 0.8 mg/dL (0.2-1.0) Direct Bilirubin 0.2 mg/dL (<0.3) HgA1c, TSH Test 03/08/25 06:20 Hemoglobin A1c 5.8 % A1C (<5.7) H Thyroid Stimulating Hormone (TSH) 1.96 uIU/mL (0.55-4.78) Urinalysis Test 03/08/25 00:24 Urine Color Light-yellow (Yellow) Urine Clarity Clear (Clear) Urine pH 5.5 (5.0-9.0) Urine Specific [place] 1.018 (1.001-1.035) Urine Protein Negative (Negative) Urine Ketones Negative (Negative) Urine Blood Negative /uL (Negative) Urine Nitrite Negative (Negative) Urine Bilirubin Negative (Negative) Urine Urobilinogen Normal mg/dL (Negative) Urine Leukocyte Esterase Trace /uL (Negative) Urine RBC None seen /hpf (0 - 4) Urine Microscopic WBC 2 /HPF (0-5) Urine Squamous Epithelial Cells None seen /hpf (<5) Urine Bacteria None seen /hpf (None Seen) Urine Mucus Few (None Seen) Urine Glucose Normal mg/dL (Normal) Assessment/Plan Assessment/Plan Dizziness, rule out stroke/mass ? Polycythemia Lactic acidosis Transaminitis Obesity Hypertension Elevated D dimer All imaging reviewed and negative Consult neurology CT angio chest today Continue IV abx Plan discussed with: Patient My Orders Orders - DREAD VILLA MD Procedure Category Date Status Time Ct Angio Chest CT 03/08/25 Resulted Contrast 10:32 Regular Diet DIET 03/08/25 Transmitted Dinner Date of Service: March 08, 2025 Billing Provider: DREAD VILLA MD Common Visit Codes: [id number] INP/OBS CARE(HIGH) DREAD VILLA MD March 08, 2025 18:30
[2025-03-08] MEDS: VANCOMYCIN 1GM/200ML PM 200 ML IV SCH (18:31)
[2025-03-08] MEDS: ENOXAPARIN SOD 80 MG/0.8ML SYRINGE SC SCH (21:27)
[2025-03-09] VITALS (7 sets, daily range): BP systolic 112–161; BP diastolic 55–82; PULSE 51–72; RESP 16–18; TEMP 98.3–98.7; O2SAT 97–98
[2025-03-09] MEDS: ERGOCALCIFEROL 50,000 UNIT(1.25MG) CAP PO SCH (05:26)
[2025-03-09 07:42] LABS: Basophils # (auto) 0 10 ^3/uL (0-0.2); Basophils % (auto) 0.5 % (0.0-2.0); Eosinophils # (auto) 0 10 ^3/uL (0-0.8); Eosinophils % (auto) 0.8 % (0.0-7.0); Hematocrit 44.2 % (36.0-46.0); Hemoglobin 15.1 g/dL (12.2-16.2); Lymphocytes # (auto) 0.8 10 ^3/uL (0.4-5.4); Lymphocytes % (auto) 14.1 % (10.0-50.0); Mean Corpuscular Hemoglobin 31.2 pg (28.0-32.0); Mean Corpuscular Hgb Conc. 34.3 g/dL (32.0-36.0); Monocytes # (auto) 0.7 10 ^3/uL (0-1.3); Monocytes % (auto) 11.3 % (0.0-12.0); Neutrophils # (auto) 4.3 10 ^3/uL (1.6-8.6); Neutrophils % (auto) 73.3 % (37.0-80.0); Nucleated Red Blood Cells % 0.1 %; Platelet Count (auto) 142 10^3/uL (140-450); Red Blood Cells 4.85 10^6/uL (4.0-5.20); Red Cell Distribution Width 13.3 % (11.8-14.3); White Blood Cell 5.8 10^3/uL (4.4-10.8)
[2025-03-09 10:07] LABS: Anti-Centromere B Antibody <0.2 AI (0.0-0.9); Anti-Jo-1 Antibody <0.2 AI (0.0-0.9); Anti-dsDNA Antibody 1 IU/mL (0-9); Antichromatin Antibody <0.2 AI (0.0-0.9); Antiscleroderma-70 Antibody <0.2 AI (0.0-0.9); RNP Antibody <0.2 AI (0.0-0.9); Sjogren's Anti-SS-A Antibody <0.2 AI (0.0-0.9); Sjogren's Anti-SS-B Antibody <0.2 AI (0.0-0.9); Smith Antibody <0.2 AI (0.0-0.9)
[2025-03-09] MEDS ORDERED: AUG875T PO (12:41)
[2025-03-09] MEDS ORDERED: CIPR1SUS8 OT (12:41)
[2025-03-09] MEDS ORDERED: VANCOMYCIN 1GM/200ML PM 200 ML IV SCH ×2 (16:00)
--- NOTE | 2025-03-09 16:48 | DVHDS2 ---
Discharge Summary Date of Admission Mar 07, 2025 at 23:56 Date of Discharge: March 09, 2025 Labs/Diagnostic Data: Laboratory Results Test 03/09/25 14:52 03/09/25 06:41 03/08/25 06:20 03/08/25 00:30 Vancomycin Level Trough 8.4 ug/mL (5-10) White Blood Count 5.8 10^3/uL (4.4-10.8) Red Blood Count 4.85 10^6/uL (4.0-5.20) Hemoglobin 15.1 g/dL (12.2-16.2) Hematocrit 44.2 % (36.0-46.0) Mean Corpuscular Volume 91.0 fL (80.0-100.0) Mean Corpuscular Hemoglobin 31.2 pg (28.0-32.0) Mean Corpuscular Hemoglobin Concent 34.3 g/dL (32.0-36.0) Red Cell Distribution Width 13.3 % (11.8-14.3) Platelet Count 142 10^3/uL (140-450) Mean Platelet Volume 8.3 fL (6.9-10.8) Neutrophils (%) (Auto) 73.3 % (37.0-80.0) Lymphocytes (%) (Auto) 14.1 % (10.0-50.0) Monocytes (%) (Auto) 11.3 % (0.0-12.0) Eosinophils (%) (Auto) 0.8 % (0.0-7.0) Basophils (%) (Auto) 0.5 % (0.0-2.0) Neutrophils # (Auto) 4.3 10 ^3/uL (1.6-8.6) Lymphocytes # (Auto) 0.8 10 ^3/uL (0.4-5.4) Monocytes # (Auto) 0.7 10 ^3/uL (0-1.3) Eosinophils # (Auto) 0 10 ^3/uL (0-0.8) Basophils # (Auto) 0 10 ^3/uL (0-0.2) Nucleated Red Blood Cells 0.1 % Creatinine 0.50 mg/dL (0.550-1.02) Glomerular Filtration Rate Calc 105 mL/min (>90) Reticulocyte Count (auto) 0.37 % (0.5-1.5) Prothrombin Time 11.5 sec (9.3-11.8) Prothrombin Time INR 1.09 (0.9-1.15) Activated Partial Thromboplast Time 33.2 SEC (24.5-34.5) Sodium Level 141 mmol/L (136-145) Potassium Level 3.5 mmol/L (3.5-5.1) Chloride Level 111 mmol/L (98-107) Carbon Dioxide Level 21 mmol/L (20-31) Anion Gap 9 (5-15) Blood Urea Nitrogen 11 mg/dL (9-23) BUN/Creatinine Ratio 21.2 (10.0-20.0) Serum Glucose 104 mg/dL (74-106) Hemoglobin A1c 5.8 % A1C (<5.7) Lactic Acid Level 1.1 mmol/L (0.4-2.0) Calcium Level 8.6 mg/dL (8.7-10.4) Magnesium Level 2.1 mg/dL (1.6-2.6) Iron Level 82 ug/dL (50-170) Total Iron Binding Capacity 270 ug/dL (250-425) Percent Iron Saturation 30.4 % (15-50) Ferritin 327.3 ng/mL (10-291) Total Bilirubin 0.8 mg/dL (0.2-1.0) Direct Bilirubin 0.2 mg/dL (<0.3) Aspartate Amino Transferase (AST) 28 U/L (13-40) Alanine Aminotransferase (ALT) 43 U/L (7-40) Alkaline Phosphatase 110 U/L (46-116) Total Protein 6.0 g/dL (5.7-8.2) Albumin 3.7 g/dL (3.2-4.8) Vitamin B12 Level 539 pg/mL (211-911) Vitamin D 25-Hydroxy 14.5 ng/mL (30.0-100) Thyroid Stimulating Hormone (TSH) 1.96 uIU/mL (0.55-4.78) Erythrocyte Sedimentation Rate 4 mm/hr (0-20) D-Dimer, Quantitative 1.61 mg/L FEU (0.0-0.49) C-Reactive Protein High Sensitivity 0.84 mg/dL (<1.0) Anti-Nuclear Antibody Comment Comment (.) ARPITA-1 Antibody <0.2 AI (0.0-0.9) SS-A/Ro Antibody <0.2 AI (0.0-0.9) SS-B/La Antibody <0.2 AI (0.0-0.9) Sm Antibody <0.2 AI (0.0-0.9) FUNCTIONAL ANALYST Antibody <0.2 AI (0.0-0.9) Scl-70 (Scleroderma) Antibody <0.2 AI (0.0-0.9) Anti-Double Strand DNA Antibody 1 IU/mL (0-9) Chromatin Antibody <0.2 AI (0.0-0.9) Centromere B Antibody <0.2 AI (0.0-0.9) Test 03/08/25 00:24 03/07/25 20:11 03/07/25 19:11 Urine Color Light-yellow (Yellow) Urine Clarity Clear (Clear) Urine pH 5.5 (5.0-9.0) Urine Specific [place] 1.018 (1.001-1.035) Urine Protein Negative (Negative) Urine Ketones Negative (Negative) Urine Blood Negative /uL (Negative) Urine Nitrite Negative (Negative) Urine Bilirubin Negative (Negative) Urine Urobilinogen Normal mg/dL (Negative) Urine Leukocyte Esterase Trace /uL (Negative) Urine RBC None seen /hpf (0 - 4) Urine Microscopic WBC 2 /HPF (0-5) Urine Squamous Epithelial Cells None seen /hpf (<5) Urine Bacteria None seen /hpf (None Seen) Urine Mucus Few (None Seen) Urine Glucose Normal mg/dL (Normal) Urine Opiates Screen Neg (NEGATIVE) Urine Fentanyl Screen Neg (NEGATIVE) Urine Barbiturates Screen Neg (NEGATIVE) Urine Phencyclidine Screen Neg (NEGATIVE) Urine Amphetamines Screen Neg (NEGATIVE) Urine Benzodiazepines Screen Neg (NEGATIVE) Urine Cocaine Screen Neg (NEGATIVE) Urine Cannabinoids Screen Neg (NEGATIVE) Troponin I High Sensitivity 8 ng/L (</=34) Platelet Estimate Adequate Red Blood Cell Morphology Normal Other Laboratory Tests 03/09/25 06:41 03/08/25 06:20 Brief Hx & Hospital Course: Ms Wen is a 64-year-old female with past medical history of hypertension, left eye retinal detachment September 2024 status post surgery at [place] who presented to the ER with a chief complaint of left-sided headache, conjunctival redness, dizziness and fever for the past 7 days. Patient has been reporting dizziness for the past 2 weeks for which she went [facility] where she was probably given meclizine and sent home. Patient's symptom did not improve and she continues to be dizzy, started to develop left-sided periorbital headache radiating to the left temporal region associated with high-grade fever 103 F starting 03/07 along with chills. Headache is associated photophobia patient is experiencing headache for the past 2 months. She denies any nausea vomiting shortness of breaths, chest pain, cough, palpitations, abdominal or urinary symptoms. Patient was completed her Medrol doxy pack on 03/03, she has been taking p.o. cefdinir All septic workup was negative, but possible otitis on right ear Condition at Discharge: Good Final Diagnosis/Problems List sepsis otitis media Discharge Disposition: Home Discharge Instruct/Medications Diet: Regular Activity: No Restrictions, As Tolerated Follow Up/Referral: PCP in 7 days Medications: augmentin, ciprofloxacin otic Discharge Statement: "Patient was advised to return to the ER or call 911 if any headaches, dizziness, shortness of breath, chest pain, abdominal pain, bleeding, fevers, or worsening of medical condition. Patient was counseled about treatment plan, medications, possible side effects, patientverbalized understanding. All questions were answered to the best of my ability. This discharge took greater then 30 minutes in planning, reviewing documentation, counseling the patient, and discussing with other team members." ASSESSMENT ASSESSMENT Assessment sepsis otitis media Date of Service: March 09, 2025 Billing Provider: DREAD VILLA MD Common Visit Codes: 67315-[id number] DISCH DAY >30min DREAD VILLA MD March 09, 2025 16:48
[2025-03-10 12:06] LABS: Cytoplasmic (C-ANCA) <1:20 titer (Neg:<1:20); Perinuclear (P-ANCA) <1:20 titer (Neg:<1:20)
[2025-03-11 15:07] LABS: Antimyeloperoxidase (MPO) Ab <0.2 units (0.0-0.9); Antiproteinase 3 (PR-3) Ab <0.2 units (0.0-0.9)
== END 2025-03-09 16:35 | disposition home or self-care (01) | DRG 720 ==
LOC: ER 18:21 → OVERFLOW 23:56 → TELE-WESTW 23:56
PROVIDERS: ADMIT Hospitalist; ATTEND Hospitalist
DX: A41.9 Sepsis, unspecified organism (principal); E87.20 Acidosis, unspecified; E66.9 Obesity, unspecified; I10 Essential (primary) hypertension; Z68.37 Body mass index [BMI] 37.0-37.9, adult; D75.1 Secondary polycythemia; H33.22 Serous retinal detachment, left eye; B34.9 Viral infection, unspecified; R74.01 Elevation of levels of liver transaminase levels; Z85.43 Personal history of malignant neoplasm of ovary; H66.91 Otitis media, unspecified, right ear
CPT/HCPCS: 36415; 70450; 70545; 70551; 71045; 71275; 80053; 80076; 80202; 80307; 81001; 82306; 82565; 82607; 82728; 83036; 83516; 83520; 83540; 83550; 83605; 83735; 84443; 84484; 85025; 85045; 85379; 85610; 85652; 85730; 86141; 86225; 86235; 86256; 87040; 87077; 87186; 93005; 93970; 96360; 99291; G0378; J3490